=== PATIENT | female | born 1985 | race Caucasian/White ===

== ENCOUNTER 2023-02-19 17:21 | Emergency (ER) | payer MEDICAID ==
[~2023-02-19] VITALS: Ht 157.5 cm; Wt 81.6 kg
[2023-02-19 17:32] VITALS: BP 103/60; PULSE 84; RESP 18; TEMP 97.8; O2SAT 98
[2023-02-19] MEDS ORDERED: CIPR500T4 PO (17:44)
[2023-02-19 18:05] VITALS: BP 103/60; PULSE 84; RESP 18; TEMP 97.3; O2SAT 98
== END 2023-02-19 18:07 | disposition home or self-care (01) ==
LOC: MED 17:21
DX: S91.332A Puncture wound without foreign body, left foot, initial encounter (principal); Z79.899 Other long term (current) drug therapy; Z79.2 Long term (current) use of antibiotics; W45.8XXA Other foreign body or object entering through skin, initial encounter; Y92.89 Other specified places as the place of occurrence of the external cause; Y93.89 Activity, other specified; Y99.8 Other external cause status
CPT/HCPCS: 81025; 90471; 90715; 99283